=== PATIENT | female | born 1985 | race Caucasian/White ===

== ENCOUNTER → 2021-12-13 | Outpatient (CLI) | payer BC, OTHER ==
[2021-12-13 18:45] LABS: HCT 31.9 % (37.2-46.3); HGB 10.2 g/dL (12.0-15.0); MCH 25.4 pg (27.0-32.0); MCV 79.4 fL (80.0-97.0); NRBC Per 100 WBC 0 /100 WBCS (0.0-0.0); Platelet Count 166 X 10*3/uL (140-440); RBC 4.02 X 10*6/uL (4.10-5.20); RDW 14.3 % (11.5-14.5); WBC 9.82 X 10*3/uL (4.50-10.00)
[2021-12-13 19:58] LABS: African American GFR (CKD) 138.5 (60.0-200.0); Blood Urea Nitrogen 6.2 mg/dL (9.0-27.0); Non-African American GFR(CKD) 119.5 (60.0-200.0); Uric Acid 4.3 mg/dL (2.9-7.7)
== END | disposition home or self-care (01) ==
LOC: LABWHC1 12:30
PROVIDERS: ATTEND Obstetrics & Gynecology
DX: O13.9 Gestational [pregnancy-induced] hypertension without significant proteinuria, unspecified trimester (principal); Z3A.00 Weeks of gestation of pregnancy not specified
CPT/HCPCS: 36415; 82565; 83615; 84450; 84460; 84520; 84550; 85027

== ENCOUNTER 2022-01-10 05:49 | Inpatient (IN) | payer BC, OTHER ==
--- NOTE | 2022-01-09 06:56 | P.HPOB ---
History of Present Illness H&P Date: 01/09/22 Chief Complaint: macrosomia, multi parity desires permanent sterilization This patient is a pleasant 36-year-old 4 para 2 female estimated date of confinement 01/19/2022 estimated gestational age 38-5/7 weeks who presents to labor and delivery for delivery secondary to gestational hypertension. Patient's is been complicated by multiple factors including morbid obesity, macrosomia, and gestational hypertension. Patient developed some elevated blood pressures earlier in the and preeclampsia labs were negative. Patient however has had persistent blood pressure elevations oftentimes greater than 140/90 therefore meeting criteria for gestational hypertension. Per current recommendations plan is to deliver after 37 weeks. Patient's also had growth ultrasounds showing excessively large baby. Most recent ultrasound which was approximately a week ago showed estimated weight at least 9 pounds with the abdomen being greater than the 98th percentile. Overall weight is greater than the 90th percentile as well. Due to the patient's other risk factors including morbid obesity current recommendations proceed with section for delivery due to significant risk of dystocia with delivery. I did discuss this with the patient and she did agree to proceed with section for delivery. Patient's also requesting permanent sterilization. Patient understands a tubal ligation is considered permanent. Patient did not want any genetic testing for her age. She did however see maternal- medicine at a level III ultrasound. Patient's had regular testing. Review of Systems Genitourinary: Reports Menstruation: Reports amenorrhea Past Medical History Past Medical History: No Reported History Past Surgical History: No Surgical Hx Reported Past Anesthesia/Blood Transfusion Reactions: No Reported Reaction Past Psychological History: No Psychological Hx Reported Smoking Status: Never smoker Past Alcohol Use History: None Reported Past Drug Use History: None Reported Medications and Allergies Allergies Allergy/AdvReac Type Severity Reaction Status Date / Time No Known Allergies Allergy Verified 01/09/22 06:51 Exam - OBG Physical Exam Abdomen: bowel sounds normal, no diffuse tenderness, no bruit present, no guarding noted, no hepatomegaly, no splenomegaly, no mass Vulva: both: normal Vagina: normal moisture, no discharge Cervix: no lesion (Cervix is closed), no discharge Uterus: enlarged (Fundal height in the office 48 cm) Results blood work shows she is AB+, rubella nonimmune, RPR nonreactive, hepatitis B negative, HIV is negative, group B strep was positive, level III ultrasound was normal, most recent ultrasound showed estimated weight approximately 9 pounds just greater than the 90th percentile with the abdomen greater than 98th percentile. Assessment and Plan Assessment: This is a pleasant 36-year-old 4 para 2 female 38-5/7 weeks' gestation with gestational hypertension without evidence of preeclampsia, morbid obesity, macrosomia, and multi parity desires permanent sterilization. Patient I did discuss the excessively large size of her baby based on ultrasound and due to significant risk factors for shoulder dystocia recommendations are to proceed with delivery by section. She does understand there are limitations and inaccuracies to the ultrasound certainly this baby may be smaller or bigger. She also understands a tubal ligation is considered permanent. Plan is to proceed with primary section and bilateral partial salpingectomy. She also understands she is at increased risk of surgical complications secondary to her morbid obesity. She is at increased risk of infection, bleeding, possible injury bowel, bladder, vessels, and/or other organs. Patient understands a tubal ligation does have a failure rate of approximately less than 5 per thousand procedures done. She understands her alternatives to this procedure. All the patient's questions are answered written consent is obtained. (1) 38 weeks gestation of Status: Acute Code(s): Z3A.38 - 38 WEEKS GESTATION OF SNOMED Code(s): 48129255 (2) Gestational hypertension Status: Acute Code(s): O13.9 - GESTATIONAL HTN W/O SIGNIFICANT PROTEINURIA, UNSP TRIMESTER SNOMED Code(s): 57514618 (3) macrosomia affecting management of mother, antepartum Status: Acute Code(s): O36.60X0 - MATERNAL CARE FOR EXCESS GROWTH, UNSP TRIMESTER, UNSP SNOMED Code(s): 93464753 (4) Morbid obesity Status: Acute Code(s): E66.01 - MORBID (SEVERE) OBESITY DUE TO EXCESS CALORIES SNOMED Code(s): 491306638 (5) Elderly multigravida Status: Acute Code(s): O09.529 - SUPERVISION OF ELDERLY MULTIGRAVIDA, UNSPECIFIED TRIMESTER SNOMED Code(s): 035319378 (6) Family planning Status: Acute Code(s): Z30.09 - ENCOUNTER FOR OTH GENERAL CNSL AND ADVICE ON CONTRACEPTION SNOMED Code(s): 593392793
[2022-01-10] MEDS ORDERED: CITRIC ACID-SODIUM CITRATE 15 ML CUP PO ONE (06:12)
[2022-01-10] MEDS ORDERED: LACTATED RINGERS 1,000 ML IV ONE (06:12)
--- NOTE | 2022-01-10 06:18 | P.PN ---
Progress Note - Text Progress Note Date: 01/10/22 Patient's blood pressure is significantly elevated from the office therefore I am going to send preeclampsia labs this morning as well. Otherwise she is feeling well. heart tones are category 1. Plan is to proceed with primary section and tubal ligation this morning. I did re-discussed the permanence of a tubal ligation and the variance of weight.
[2022-01-10] MEDS ORDERED: ceFAZolin 3 GM in SODIUM CHLORIDE 0.9% 100 ML IVPB ONE (06:30)
[2022-01-10 06:38] LABS: Basophils % (A) 0 %; Eosinophils # (A) 0.1 k/uL (0-0.7); Eosinophils % (A) 1 %; HCT 33.3 % (34.0-46.0); HGB 10.8 gm/dL (11.4-16.0); Hypochromasia Slight; Lymphocytes # (A) 1.6 k/uL (1.0-4.8); Lymphocytes % (A) 17 %; MCH 25.3 pg (25.0-35.0); MCHC 32.4 g/dL (31.0-37.0); Mean Platelet Volume 8.8; Monocytes # (A) 0.5 k/uL (0-1.0); Monocytes % (A) 6 %; Neutrophils % (A) 75 %; Platelet Count 175 k/uL (150-450); RBC 4.27 m/uL (3.80-5.40); RDW 14.6 % (11.5-15.5); WBC 9.4 k/uL (3.8-10.6)
[2022-01-10 06:46] LABS: Uric Acid 4.5 mg/dL (3.7-7.4)
[2022-01-10] MEDS: LACTATED RINGERS 1,000 ML IV SCH ×2 (07:34→12:06)
[2022-01-10] MEDS ORDERED: ONDANSETRON 4 MG/2 ML VIAL ONE (07:50)
[2022-01-10] MEDS ORDERED: OXYTOCIN 10 UNIT/ML 1 ML VIAL ONE (07:50)
[2022-01-10] MEDS ORDERED: HYDROmorphone (PF) 1 MG/ML ONE (07:50)
[2022-01-10] MEDS ORDERED: diphenhydrAMINE 50 MG/ML 1 ML VIAL ONE (07:50)
[2022-01-10] MEDS ORDERED: DEXAMETHASONE SOD PHOSPHATE 10 MG/ML 1 ML VIAL ONE (07:50)
[2022-01-10] MEDS ORDERED: KETOROLAC 15 MG/ML 1 ML VIAL ONE (07:50)
[2022-01-10] MEDS ORDERED: OXYTOCIN 30 UNITS/500 ML NS BAG IV ONE (07:50)
[2022-01-10] MEDS ORDERED: PHENYLEPHRINE-0.9% NACL SYG 1,000 MCG/10 ML SYRINGE ONE (07:50)
[2022-01-10] MEDS ORDERED: NALBUPHINE 10 MG/ML (1 ML AMP) IV PRN (08:19)
[2022-01-10] MEDS ORDERED: ONDANSETRON 4 MG/2 ML VIAL IVP PRN ×2 (08:19→08:48)
[2022-01-10] MEDS ORDERED: NALOXONE 0.4 MG/ML 1 ML VIAL IV PRN ×2 (08:19→08:48)
[2022-01-10] MEDS ORDERED: HYDROmorphone 0.5 MG/0.5 ML SYRINGE IVP PRN (08:19)
[2022-01-10] MEDS ORDERED: OXYTOCIN 30 UNITS/500 ML NS 30 UNIT in SALINE 1 500ML.BAG IV SCH (08:48)
[2022-01-10] MEDS ORDERED: LANOLIN CREAM 5 GM TUBE TOPICAL PRN (08:48)
[2022-01-10] MEDS ORDERED: diphenhydrAMINE 25 MG CAP PO PRN (08:48)
[2022-01-10] MEDS ORDERED: SIMETHICONE 80 MG CHEWABLE PO PRN (08:48)
[2022-01-10] MEDS ORDERED: LACTATED RINGERS 1,000 ML IV SCH (08:48)
[2022-01-10] MEDS ORDERED: diphenhydrAMINE 50 MG/ML 1 ML VIAL IVP PRN (08:48)
[2022-01-10] MEDS ORDERED: METOCLOPRAMIDE 5 MG/ML 2 ML VIAL IVP PRN (08:48)
[2022-01-10] MEDS ORDERED: ZOLPIDEM 5 MG TAB PO PRN (08:48)
--- NOTE | 2022-01-10 08:48 | P.OP ---
Date of Procedure: 01/10/22 Preoperative Diagnosis: #1:38-5/7 week intrauterine . #2: Gestational hypertension. #3: Suspected macrosomia. #4: Morbid obesity. #5: Multi parity desires permanent sterilization. Postoperative Diagnosis: same Procedure(s) Performed: primary low transverse section and bilateral partial salpingectomy Anesthesia: spinal Surgeon: Kana Pennington Public Safety Dispatcher #1: Isis Eric Estimated Blood Loss (ml): 1,000 Pathology: other (placenta and bilateral fallopian tube segments) Condition: stable Disposition: floor Indications for Procedure: Please see dictated H&P for intimate details of this patient's admission. In brief summary this is a pleasant 36-year-old 4 para 2 female 38-5/7 weeks' gestation who is admitted to labor and delivery for elective primary section due to suspected macrosomia and increased risk of dystocia. Patient also is requesting permanent sterilization that time of the surgery. Patient understands a tubal ligation is permanent however does have a failure rate of less than 5 per thousand procedures done. She understands if she does become she is a 50% chance of tubal or ectopic . Patient also understands that surgery itself and apparently has risks including risks of infection, bleeding, possible injury bowel, bladder, vessels, and/or other organs. All the patient's questions are answered and a written consent is obtained. Operative Findings: This is a viable male infant Apgars 9 and 9 delivery time is 0807 hrs. Infant's weight was 3890 g. The uterus, tubes, ovaries appear normal for term gestation. Description of Procedure: This patient has a Shore catheter placed to straight drain. She is subsequently taken to the operating room where she sat up and spinal anesthetic is administer ed without incident. With an adequate level of anesthesia she has abdominal prep and drape. The abdominal retractor is placed to lift the pannus up out of the operative field. With an adequate level of anesthesia, scalpel is taken and a Pfannenstiel skin incision is then made. A second scalpel is taken down the fascia and the fascia scored with a knife. Fascial incision extended bilaterally with the Goetz scissors. Fascia is dissected off the rectus muscles sharply. Rectus muscles are the peritoneum identified and entered sharply. Peritoneal incision extended superior and inferior without difficulty. Bladder blade is then placed. Bladder peritoneum was taken off the lower uterine segment sharply. Scalpels and taken low transverse uterine incision is then made. Using a hemostat I into the uterine cavity bluntly is loss of a large amount of amniotic fluid. The infant's head is then guided through the incision with fundal pressure. Mouth and nares are bulb suctioned. There is no evidence of a nuchal cord. With more fundal pressure we then have deliver the anterior posterior shoulder and rest this 's body. This is a vigorous viable male Apgars are 9 and 9 delivery time was 0807 hrs. After delivery of the infant the umbilical cord is doubly clamped and cut infant is handed off to the nurses in attendance. The placenta is then manually extracted intact. Uterus is then externalized. Uterine incision demarcated with Trevino clamps. All debris is removed and the uterine cavity. Uterine incision then closed using 0 Vicryl running locked fashion 2 layers. Bladder peritoneum was then reapproximated using 3-0 Vicryl as best as possible. Excellent hemostasis is noted. Then turned my attention a left fallopian tube and approximately 4 cm from the cornual insertion a small window made to the mesial salpinx. Using a 2-0 silk I doubly ligate a 2 cm segment of the tube. This is excised and handed off to pathology. The tubal ends are cauterized and it appeared to be hemostatic. Turned my attention a right side using a similar technique with similar results. With this done excess fluid is removed from the abdomen and pelvis. All incisions appear hemostatic's uterus is placed back into the abdomen. Final inspection of the tubal ends and the uterine incision showed good hemostasis. The parietal peritoneum was then closed using 0 Vicryl running fashion. Rectus muscles are quite a bit I do not think they can be approximated safely therefore the fascia is then closed using 0 PDS running fashion. Fascial incision is intact and hemostatic. Subcutaneous tissues and closed using a 3-0 Vicryl. The skin is and closed using viral. Pressure dressing is applied. All counts are correct 3. There are no compli cations. and mother are taken to the birthing suite in satisfactory condition.
[2022-01-10] MEDS: ACETAMINOPHEN TAB 500 MG TAB PO SCH ×2 (12:11→18:22)
[2022-01-10] MEDS: SENNOSIDES-DOCUSATE SODIUM 1 EACH TAB PO SCH ×2 (12:19→20:29)
[2022-01-10] MEDS: IBUPROFEN 600 MG TAB PO SCH ×2 (14:02→20:12)
[2022-01-10] MEDS: KETOROLAC 15 MG/ML 1 ML VIAL IVP SCH (15:21)
[2022-01-10] MEDS: ceFAZolin 3 GM in SODIUM CHLORIDE 0.9% 100 ML IVPB SCH (15:22)
[2022-01-11] MEDS: ceFAZolin 3 GM in SODIUM CHLORIDE 0.9% 100 ML IVPB SCH (00:18)
[2022-01-11] MEDS: ACETAMINOPHEN TAB 500 MG TAB PO SCH ×5 (00:18→23:10)
[2022-01-11] MEDS: LACTATED RINGERS 1,000 ML IV SCH ×2 (00:22→19:25)
[2022-01-11] MEDS: KETOROLAC 15 MG/ML 1 ML VIAL IVP SCH ×2 (03:24→19:26)
[2022-01-11] MEDS: IBUPROFEN 600 MG TAB PO SCH ×3 (03:28→16:48)
[2022-01-11 06:16] LABS: Basophils % (A) 0 %; Eosinophils # (A) 0.1 k/uL (0-0.7); Eosinophils % (A) 1 %; HCT 26.5 % (34.0-46.0); Hypochromasia Slight; Lymphocytes # (A) 1.6 k/uL (1.0-4.8); Lymphocytes % (A) 15 %; MCH 25.4 pg (25.0-35.0); MCHC 32.3 g/dL (31.0-37.0); MCV 78.6 fL (80.0-100.0); Mean Platelet Volume 8.4; Monocytes # (A) 0.7 k/uL (0-1.0); Monocytes % (A) 7 %; Neutrophils # (A) 8.1 k/uL (1.3-7.7); Neutrophils % (A) 77 %; Platelet Count 136 k/uL (150-450); RBC 3.37 m/uL (3.80-5.40); RDW 14.8 % (11.5-15.5); WBC 10.6 k/uL (3.8-10.6)
[2022-01-11 06:17] LABS: HGB 8.5 gm/dL (11.4-16.0)
[2022-01-11] MEDS: SENNOSIDES-DOCUSATE SODIUM 1 EACH TAB PO SCH ×2 (08:01→19:57)
--- NOTE | 2022-01-11 09:17 | P.PNOBGPC ---
Subjective - Subjective Principal diagnosis: Status post primary section postoperative day #1 Interval history: Patient is doing well. She has been ambulating. She is passing flatus but no bowel movement yet. Pain has been fairly well-controlled. She is breast- feeding. Lochia has been minimal. She was feeling some dizziness yesterday but today she has not been noticing that. Patient reports: Reports appetite normal, Reports voiding normally, Reports pain well controlled, Reports ambulating normally Fifty Six: doing well, nursing well Objective - Vital Signs Latest vital signs: Vital Signs Temp Pulse Resp BP Pulse Ox 01/11/22 08:49 97.9 F 84 16 117/76 97 01/11/22 03:46 98.2 F 72 18 118/75 97 01/11/22 00:00 98.2 F 72 16 148/76 97 01/10/22 20:00 97.8 F 77 18 112/70 97 01/10/22 15:37 98.4 F 79 18 107/66 95 01/10/22 12:16 17 01/10/22 11:19 18 01/10/22 11:00 77 18 121/59 98 01/10/22 10:19 92 16 125/53 95 01/10/22 09:44 97.2 F L 79 18 137/58 97 01/10/22 09:29 75 18 120/56 98 01/10/22 09:15 78 18 116/58 98 Intake and Output 01/10/22 01/11/22 01/11/22 22:59 06:59 14:59 Output Total 400 Balance -400 Output: Urine 400 Other: Voiding Method Indwelling Catheter Toilet - Exam Extremities: Present: normal. Absent: tenderness, edema Abdomen: Present: normal appearance, soft (Positive bowel sounds 4). Absent: distention, tenderness Incision: Present: normal, dry, intact. Absent: erythematous Uterus: Present: normal, firm. Absent: tenderness - Labs Labs: Abnormal Lab Results - Last 24 Hours (Table) 01/11/22 Range/Units 05:44 RBC 3.37 L (3.80-5.40) m/uL Hgb 8.5 L D (11.4-16.0) gm/dL Hct 26.5 L (34.0-46.0) % MCV 78.6 L (80.0-100.0) fL Plt Count 136 L (150-450) k/uL Neutrophils # 8.1 H (1.3-7.7) k/uL Assessment and Plan Assessment: Status post primary low transverse section postoperative day #1 Plan: Continue with postoperative and care. Advance diet as tolerated. May shower. Anticipate discharge home tomorrow.
--- NOTE | 2022-01-11 17:07 | P.PN ---
Progress Note - Text Progress Note Date: 01/11/22 Postoperative day 1 status post section under spinal anesthesia, and i ntrathecal morphine given for postoperative analgesia, patient doing well, there is no anesthesia related complications, Patient had no headache, vital signs stable , Assessment and plan= postop day 1 status post , doing well there is no anesthesia related complication.
[2022-01-12] MEDS: IBUPROFEN 600 MG TAB PO SCH ×3 (00:07→06:39)
[2022-01-12] MEDS: ACETAMINOPHEN TAB 500 MG TAB PO SCH ×2 (05:15→11:38)
[2022-01-12 07:43] LABS: Basophils % (A) 0 %; Eosinophils # (A) 0.2 k/uL (0-0.7); Eosinophils % (A) 2 %; HCT 26.2 % (34.0-46.0); HGB 8.3 gm/dL (11.4-16.0); Hypochromasia Moderate; Lymphocytes # (A) 1.4 k/uL (1.0-4.8); Lymphocytes % (A) 16 %; MCH 25.4 pg (25.0-35.0); MCHC 31.7 g/dL (31.0-37.0); MCV 80.1 fL (80.0-100.0); Mean Platelet Volume 8.6; Monocytes # (A) 0.5 k/uL (0-1.0); Monocytes % (A) 6 %; Neutrophils % (A) 76 %; Platelet Count 154 k/uL (150-450); RBC 3.27 m/uL (3.80-5.40); RDW 14.9 % (11.5-15.5); WBC 9.2 k/uL (3.8-10.6)
[2022-01-12 08:31] VITALS: BP 126/83; PULSE 82; RESP 16; TEMP 98.3
--- NOTE | 2022-01-12 10:52 | P.DS ---
Providers Date of admission: 01/10/22 05:49 Expected date of discharge: 01/12/22 Attending physician: Kana Pennington Primary care physician: Stated None Hospital Course: This is a 36-year-old female 4 para 2 at 38-5/7 weeks who presented for scheduled primary section due to -induced hypertension and macrosomia. Please see history of physical and operative note for details of patient's admission. She underwent a primary low transverse section under spinal Duramorph anesthesia on 01/10/2022 and delivered a viable male infant with scores of 9 at 1 minute and 9 at 5 minutes and infant weight o f 8 lbs. 9 oz. Her postoperative and course are uncomplicated. Her lochia is minimal. Pain is well-controlled with ibuprofen and Tylenol. She is passing flatus and bowel movement. Impression is status post primary low transverse section postoperative day #2. Plan is to discharge home today. Routine postoperative and instructions are given. Shelly will be removed and Steri-Strips placed prior to discharge. She is advised to follow up with Dr. Pennington in a week for a postoperative check. She is given a prescription for ibuprofen and oxycodone. She is also instructed to continue taking her vitamins and some extra iron due to postoperative anemia. She is advised to call the office if she has any further questions or concerns prior to her appointment time. Procedures: Primary low transverse section on 01/10/2022 Patient Condition at Discharge: Stable Plan - Discharge Summary New Discharge Prescriptions: New Ibuprofen [Motrin] 600 mg PO Q6H #30 tab oxyCODONE HCL [OxyIR] 5 mg PO Q4HR PRN #18 tab PRN Reason: Pain Scale 4 - 6 No Action Aspirin 1 tab PO DAILY Discharge Medication List Aspirin 1 tab PO DAILY 01/10/22 [History] Ibuprofen [Motrin] 600 mg PO Q6H #30 tab 01/10/22 [Rx] oxyCODONE HCL [OxyIR] 5 mg PO Q4HR PRN #18 tab 01/10/22 [Rx] Follow up Appointment(s)/Referral(s): Kana Pennington MD [STAFF PHYSICIAN] - 02/17/22 8:45 am (Post Op 01-20-2022) Patient Instructions/Handouts: (DC) Activity/Diet/Wound Care/Special Instructions: No heavy lifting or strenuous activity for 6 weeks. No intercourse or anything per vagina for 6 weeks. Please call if any fever, chills, excessive vaginal bleeding, and/or abdominal pain. Discharge Disposition: HOME SELF-CARE
== END 2022-01-12 11:50 | disposition home or self-care (01) | DRG 785 ==
LOC: 4FBP 05:49
PROVIDERS: ADMIT Obstetrics & Gynecology; ATTEND Obstetrics & Gynecology
PROC: 10D00Z1 Extraction of Products of Conception, Low, Open Approach (ICD-10-PCS; principal; 2022-01-10 08:00)
PROC: 0UB70ZZ Excision of Bilateral Fallopian Tubes, Open Approach (ICD-10-PCS; principal; 2022-01-10 08:00)
DX: O36.63X0 Maternal care for excessive fetal growth, third trimester, not applicable or unspecified (principal); E66.01 Morbid (severe) obesity due to excess calories; O13.4 Gestational [pregnancy-induced] hypertension without significant proteinuria, complicating childbirth; O99.02 Anemia complicating childbirth; O99.214 Obesity complicating childbirth; Z30.2 Encounter for sterilization; Z37.0 Single live birth; Z28.310 Unvaccinated for COVID-19; Z3A.38 38 weeks gestation of pregnancy; Z79.82 Long term (current) use of aspirin
CPT/HCPCS: 83615; 84450; 84460; 84550; 85025; 86850; 86900; 86901; 88302; 88307